=== PATIENT | male | born 1960 | race Caucasian/White ===

== ENCOUNTER → 2017-10-29 08:14 | Outpatient (CLI) | payer OTHER, SELFPAY ==
[2017-10-29 12:03] LABS: Absolute Lymphocyte Count 2.36 X10^3/ul (0.83-4.51); Absolute Neutrophil Count 3.2 X10^3/uL (2.0-7.7); Basophil# 0.03 X10^3/uL; Basophil% 0.5 % (0-1); Eosinophil# 0.19 X10^3/uL; Eosinophils% 2.9 % (0-5); Hematocrit 43.4 % (40-54); Hemoglobin 14.5 g/dl (13.0-16.5); Lymphocyte # 2.36 X10^3/ul (4.0); Lymphocyte % 36.2 % (19-41); Mean Corp Hgb Conc 33.4 g/gl (32-36); Mean Corpuscular Volume 92.9 fL (80-94); Monocyte# 0.74 X10^3/uL; Monocyte% 11.3 % (0-10); Neutrophil # 3.18 X10^3/uL (2.7-7.7); Neutrophil % 48.8 % (47-70); Platelet Count 352 K/mm3 (150-450); RBC Distribution Width CV 13.2 % (11.6-14.6); RBC Distribution Width SD 44.9 fl (35.1-43.9); Red Blood Count 4.67 M/mm3 (4.6-6.2); White Blood Count 6.5 K/mm3 (4.4-11.0)
[2017-10-29 12:04] LABS: POSITIVE COUNT NO; POSITIVE DIFFERENTIAL NO; POSITIVE MORPHOLOGY NO
[2017-10-29 12:28] LABS: AST(SGOT) 15 U/L (15-37); Alanine Aminotransfer ALT/SGPT 34 U/L (16-61); Alkaline Phosphatase 76 U/L (45-117); Anion Gap 7 (5-15); BUN 19 mg/dL (7-18); BUN/Creat Ratio 15.6 RATIO (10-20); Calcium,Total 8.7 mg/dL (8.5-10.1); Chloride 105 mmol/L (98-107); Cholesterol 240 mg/dL (200); Creatinine, Serum 1.22 mg/dL (0.70-1.30); EST Glomerular Filtration Rate 65 mL/min (>60); Est Glom Filt Rate - Afr Amer 78 mL/min (>60); Globulin 4.1 g/dL (2.2-4.2); Glucose 92 mg/dL (74-106); High Density Lipoprotein 42 mg/dL; PSA,Total - Annual Screen 0.62 ng/mL (0.00-4.00); Potassium 4.1 mmol/L (3.5-5.1); Protein, Total 8.1 g/dL (6.4-8.2); Sodium Level 139 mmol/L (136-145); Triglycerides 86 mg/dL; Very Low Density Lipoprotein 17 mg/dL (5-40)
== END ==
PROVIDERS: Family Provider Family Medicine; PCP Family Medicine; Visit Provider Family Medicine
DX: Z00.00 Encounter for general adult medical examination without abnormal findings (principal); R03.0 Elevated blood-pressure reading, without diagnosis of hypertension
CPT/HCPCS: 36415; 80053; 80061; 84153; 85025; G0103

== ENCOUNTER → 2020-02-18 10:54 | Outpatient (CLI) | payer OTHER, SELFPAY | PROVIDERS: PCP Family Medicine; Visit Provider Family Medicine | DX: N39.0 Urinary tract infection, site not specified (principal) | CPT/HCPCS: 87086 ==

== ENCOUNTER → 2020-06-21 11:04 | Outpatient (CLI) | payer OTHER, SELFPAY ==
[2020-06-21 15:32] LABS: Absolute Neutrophil Count 4.9 X10^3/uL (2.0-7.7); Basophil# 0.06 X10^3/uL; Basophil% 0.8 % (0-1); Eosinophil# 0.17 X10^3/uL; Eosinophils% 2.2 % (0-5); Hematocrit 44.6 % (40-54); Hemoglobin 14.8 g/dL (13.0-16.5); Mean Corp Hgb Conc 33.2 g/dL (32-36); Mean Corpuscular Hgb 30.5 pg (27.0-32.0); Mean Corpuscular Volume 91.8 fL (80-94); Mean Platelet Vol. 10.3 fl (6.2-12.0); Monocyte% 11.5 % (0-10); NRBC Flagged by Analyzer 0 % (0-5); Neutrophil # 4.86 X10^3/uL (2.7-7.7); Platelet Count 375 K/mm3 (150-450); RBC Distribution Width CV 12.6 % (11.6-14.6); RBC Distribution Width SD 42.1 fl (35.1-43.9); Red Blood Count 4.86 M/mm3 (4.6-6.2); White Blood Count 7.8 K/mm3 (4.4-11.0)
[2020-06-21 16:21] LABS: ALB/GLOB Ratio 0.8 RATIO (0.9-2.4); AST(SGOT) 16 U/L (15-37); Alanine Aminotransfer ALT/SGPT 43 U/L (16-61); Albumin, Serum 3.8 g/dL (3.2-5.0); Alkaline Phosphatase 125 U/L (45-117); Anion Gap 8 (5-15); BUN 18 mg/dL (7-18); BUN/Creat Ratio 16.7 RATIO (10-20); CRP < 2.90 mg/L (0.0-3.0); Calcium,Total 8.7 mg/dL (8.5-10.1); Chloride 102 mmol/L (98-107); Creatinine, Serum 1.08 mg/dL (0.70-1.30); EST Glomerular Filtration Rate 74 mL/min (>60); Est Glom Filt Rate - Afr Amer 89 mL/min (>60); Globulin 4.5 g/dL (2.2-4.2); Glucose 84 mg/dL (74-106); Potassium 3.8 mmol/L (3.5-5.1); Protein, Total 8.3 g/dL (6.4-8.2); Sodium Level 136 mmol/L (136-145); Thyroid Stim Hormone (TSH) 1.08 uIU/mL (0.358-3.74)
[2020-06-23 08:16] LABS: LDL, Direct 120295 195 mg/dL (0-99)
== END ==
PROVIDERS: PCP Family Medicine; Visit Provider Family Medicine
DX: R53.83 Other fatigue (principal); R03.0 Elevated blood-pressure reading, without diagnosis of hypertension; E78.5 Hyperlipidemia, unspecified
CPT/HCPCS: 36415; 80053; 83721; 84443; 85025; 86140

== ENCOUNTER 2021-02-07 06:10 | Day surgery (SDC) | payer OTHER, SELFPAY ==
[2021-02-07] VITALS (7 sets, daily range): BP systolic 88–151; BP diastolic 61–94; PULSE 65–95; RESP 16; TEMP 36.1–36.8; O2SAT 94–97; BMI 27.1
[2021-02-07] MEDS: Lactated Ringers 1,000 ML 100 ML IV (06:37)
--- NOTE | 2021-02-07 07:30 | COLBX_PTH ---
PATIENT: KALEB SHELBY LOC: EN U#:[id number] AGE/SX: 60/M ROOM: RE02/07/[address]: Dr. Rebecca Boothe MD : 1960 BED: DIS: 02/07/2021 SPEC #: [id number] RECD: 02/07/21 10:20 STATUS: CATHERINE REManasa #: [id number] AMY: 02/07/21 07:[address]: Rebecca Boothe DEPT: SURGICAL PATHOLOGY RECD BY: Julianna Chairez ENTERED: 02/07/21 10:55 SP TYPE: COLON BX OTHR DR: Dr. Faye Sheth MD Tissues: Transverse colon Procedures: Surgery Specimen Level IV HEADER OPERATION: Colonoscopy ? open access (MAC) PRE-OP DIAGNOSIS: Screening for colon cancer TISSUE SUBMITTED: Biopsy transverse polyp MICROSCOPIC DIAGNOSIS Transverse colon polyp, biopsy: Tubular adenoma. SJ:holly 02/08/2021 MICROSCOPIC DESCRIPTION Slides are reviewed. GROSS DESCRIPTION Received in fixative is one container labeled with the patient's name and designated biopsy transverse polyp. The specimen consists of one irregular fragment of light robbins soft tissue that measures 0.3 x 0.3 x 0.1 cm. The specimen is totally submitted in one cassette. / SJ:holly 02/07/21 TC:1 CPT: 85144
--- NOTE | 2021-02-07 07:38 | H&P.OPEN ---
HPI - General HPI Narrative KALEB SHELBY, is a 60 M who presents for screening colonoscopy. Patient's never had a previous colonoscopy. Patient's grandfather had colon cancer in his later 50s but none in his immediate family. Patient denies any chronic abdominal pain/nausea/vomiting. Patient does have reflux and is taking Prilosec for that for years never had EGD. [facility] Medical History (Updated 02/07/21 @ 07:[address] Rebecca Boothe MD) Anxiety Former smoker Gastric reflux High cholesterol History of COVID-19 History of hiatal hernia History of kidney stones Leg cramps Wears contact lenses Home Medications ascorbic acid (vitamin C) [Vitamin C] 1,000 mg PO DAILY 02/05/21 [History Last Taken 02/03/21 1000 mg] cholecalciferol (vitamin D3) [Vitamin D3] 125 mcg PO DAILY 02/05/21 [History Last Taken 02/03/21 125 mcg] cyanocobalamin (vitamin B-12) [Vitamin B-12] 500 mcg PO DAILY 02/05/21 [History Last Taken 02/03/21 500 mcg] escitalopram oxalate [Lexapro] 10 mg PO DAILY 02/05/21 [History Last Taken Unknown] magnesium 15 mg PO DAILY 02/05/21 [History Last Taken 02/03/21 15 mg] multivitamin 1 tab PO DAILY 02/05/21 [History Last Taken 02/03/21 1 TAB] omeprazole [Prilosec] 20 mg PO DAILY 02/05/21 [History Last Taken 02/06/21 21:00] Allergy/AdvReac Type Severity Reaction Status Date / Time No Known Allergies Allergy Verified 02/05/21 11:46 Surgical History (Updated 02/05/21 @ 11:52 by Amelia Bailey) History of laparoscopy History of lithotripsy Social History (System 02/10/19 @ 09:40 by Sheela Lin) Smoking Status: Former smoker Past Medical/Surgical History Planned Operation Planned Operative Procedure/s: Colonoscopy Previous Hospitalizations/Surgeries HX Hospitalizations: No Any Problems With Anesthesia: No You/Your Family Experience Fever (Hyperthermia) With Anes: No Cholinesterase deficiency: No Cardiovascular Hx of Irregular Heartbeat and/or Afib: No Hx Heart Attack: No Hx Congestive Heart Failure: No Hx Hypertension: No Hx Pacemaker: No Respiratory Hx Chronic Obstructive Pulmonary Disease (COPD): No Hx Asthma: No Hx Emphysema: No Hx Sleep Apnea: No Hx Respiratory Tract Infection/Cold (presently): No Do You Snore Loudly (louder than talking or can be heard): No Do You Often Feel Tired/ Fatigued/ Sleepy Dring Daytime?: No Has Anyone Observed You Stop Breathing During Sleep?: No Result (for STOP score): Negative Smoking Status: Former smoker Gastrointestinal Hx Gastroesophageal Reflux: Yes Controlled With Meds: Yes Hx Ulcer: No Special diet followed at home: No Neurological Hx Seizures: No Hx Head/Neck Injury: No Hx Headaches: No Hx Back Injury/Pain: No Does patient have nerve stimulator: Yes Miscellaneous Recent Exposure to Contagious Disease: No Allergies No Known Allergies Allergy (Verified 02/05/21 11:46) Discharge Is Pt Admitted From a Fpc, or a Skilled Nursing: No Who Could Help: family After D/C, Where Do you Plan to Go: Return Home Vital Signs Vital Signs Vital Signs: 02/07/21 06:37 Temperature 98.2 F Temperature Source Temporal Pulse Rate 95 Respiratory Rate 16 Respiratory Pattern Normal Blood Pressure 151/94 H Blood Pressure Mean 113 Blood Pressure Source Monitor Blood Pressure Position Semi-Fowlers Blood Pressure Location Right Arm Pulse Ox 97 Oxygen Delivery Method Room Air Weight Weight: 205 lb 4.006 oz Body Mass Index (BMI) 27.1 Physical Exam Const alert, oriented x3 and no apparent distress HEENT normocephalic and head/scalp atraumatic Resp normal respiratory effort Cardio regular rate GI soft to palpation and non-tender; Negative for non-distended Palpation: Negative for guarding Extremity no clubbing, cyanosis or edema Neuro CN's II-XII intact bilaterally Psych mental status grossly normal Assessment & Plan Assessment/Plan (1) Screening for colon cancer: Procedure Criteria Type of Procedure Procedure Type: Elective Elective Risks - COVID COVID Risk Discussion: The surgeon/proceduralist and patient have discussed in detail the risk of exposure to and/or potential harm posed by the COVID-19 virus with having a surgery/procedure at this time versus the risk of delaying the surgery/procedure. It is not possible to know either the risk of delaying the surgery or procedure or chance of getting an infection with perfect accuracy, but a joint decision was made between the patient and the surgeon/proceduralist to proceed at this time with the scheduled surgery/procedure as indicated on the consent form. Surgery Risks - Colonoscopy Risks Include but are not Limited To: Risks include but are not limited to: Bleeding, perforation requiring further surgery, inability to complete colonoscopy requiring barium enema.
--- NOTE | 2021-02-07 08:21 | OP.COLON_ITS ---
Patient Name: Chuy Sunshine Procedure Date: 02/07/2021 7:14 AM Date of : 1960 Age: 60 Procedure: Colonoscopy Indications: Screening for colorectal malignant neoplasm Providers: Rebecca Boothe MD Referring MD: Faye Sheth Medicines: Monitored Anesthesia Care Patient Profile: This is a 60 year old male. Last Colonoscopy: none. The patient's first colonoscopy is today. Complications: No immediate complications. Procedure: Pre-Anesthesia Assessment: - Prior to the procedure, a History and Physical was performed, and patient medications and allergies were reviewed. The patient's tolerance of previous anesthesia was also reviewed. The risks and benefits of the procedure and the sedation options and risks were discussed with the patient. All questions were answered, and informed consent was obtained. Prior Anticoagulants: The patient has taken no previous anticoagulant or antiplatelet agents. ASA Grade Assessment: Per anesthesia. After reviewing the risks and benefits, the patient was deemed in satisfactory condition to undergo the procedure. After I obtained informed consent, the scope was passed under direct vision. Throughout the procedure, the patient's blood pressure, pulse, and oxygen saturations were monitored continuously. The colonoscope was introduced through the anus and advanced to the cecum, identified by its appearance. The colonoscopy was performed without difficulty. The patient tolerated the procedure well. The quality of the bowel preparation was good. Scope In: 7:52:03 AM Scope Withdrawal Time 0 hours 11 minutes 51 seconds Scope Out: 8:15:14 AM Total Procedure Duration Time 0 hours 23 minutes 11 seconds Findings: The perianal and digital rectal examinations were normal. A less than 5 mm polyp was found in the transverse colon. The polyp was sessile. The polyp was removed with a cold biopsy forceps. Resection and retrieval were complete. The exam was otherwise without abnormality on direct and retroflexion views. Impression: - One less than 5 mm polyp in the transverse colon, removed with a cold biopsy forceps. Resected and retrieved. - The examination was otherwise normal on direct and retroflexion views. Recommendation: - Discharge patient to home. - Resume previous diet. - Continue present medications. - Await pathology results. - Repeat colonoscopy in 5 years for surveillance based on pathology results. Procedure Code(s): --- Professional --- 93726, PT, Colonoscopy, flexible; with biopsy, single or multiple Diagnosis Code(s): --- Professional --- Z12.11, Encounter for screening for malignant neoplasm of colon D12.3, Benign neoplasm of transverse colon (hepatic flexure or splenic flexure) CPT copyright 2017 [employer]. All rights reserved. The codes documented in this report are preliminary and upon chopper operator review may be revised to meet current compliance requirements. MD Rebecca Ovalle MD 02/07/2021 8:20:29 AM This report has been signed electronically. Number of Addenda: 0 Note Initiated On: 02/07/2021 7:14 AM
--- NOTE | 2021-02-07 08:21 | OP.CCLET_ITS ---
02/07/2021 Faye Sheth [place] [id number] [address] Re : Colonoscopy procedure for Chuy Sunshine Dear Dr. Sheth This procedure was performed on Sunday, February 07, 2021. My impressions and recommendations are as follows: Impressions : - One less than 5 mm polyp in the transverse colon, removed with a cold biopsy forceps. Resected and retrieved. - The examination was otherwise normal on direct and retroflexion views. Recommendations : - Discharge patient to home. - Resume previous diet. - Continue present medications. - Await pathology results. - Repeat colonoscopy in 5 years for surveillance based on pathology results. My findings are described in the full procedure note, which is enclosed. If I can be of further assistance, please feel free to contact me at Doctor phone number(s): , Work: . Sincerely, MD Rebecca Ovalle MD 02/07/2021 8:20:29 AM This report has been signed electronically.
== END 2021-02-07 09:08 ==
LOC: EN 06:12 → AC 06:13
PROVIDERS: PCP Family Medicine; Referring Provider Family Medicine; Visit Provider Surgery
PROC: 0DJD8ZZ Inspection of Lower Intestinal Tract, Via Natural or Artificial Opening Endoscopic (ICD-10-PCS; CPT 45378; principal; 2021-02-07 07:25)
DX: Z12.11 Encounter for screening for malignant neoplasm of colon (principal); D12.3 Benign neoplasm of transverse colon; Z80.0 Family history of malignant neoplasm of digestive organs; K21.9 Gastro-esophageal reflux disease without esophagitis; Z87.891 Personal history of nicotine dependence; E78.00 Pure hypercholesterolemia, unspecified; Z86.16 Personal history of COVID-19; Z87.442 Personal history of urinary calculi
CPT/HCPCS: 45380; 87426; 88305; C9803; J7120; J2405

== ENCOUNTER 2022-07-01 16:35 | Emergency (ER) | payer OTHER, SELFPAY ==
[2022-07-01 16:36] VITALS: BP 169/106; PULSE 93; RESP 16; TEMP 36.4; O2SAT 98; BMI 27.9
--- NOTE | 2022-07-01 16:41 | EKG12_ITS ---
Test Reason : cp Blood Pressure : / mmHG Vent. Rate : 084 BPM Atrial Rate : 084 BPM P-R Int : 166 ms QRS Dur : 092 ms QT Int : 382 ms P-R-T Axes : 063 050 073 degrees QTc Int : 451 ms Normal sinus rhythm Nonspecific ST abnormality Abnormal ECG Confirmed by CARLOS VARGAS, SIRI ([id number]), health editor SERENE FIERRO ([id number]) on 07/02/2022 9:47:23 AM Referred By: Confirmed By:SIRI GONZALEZ MD
[2022-07-01 17:07] LABS: Absolute Lymphocyte Count 2.04 X10^3/uL (0.83-4.51); Absolute Neutrophil Count 3.8 X10^3/uL (2.0-7.7); Basophil# 0.05 X10^3/uL; Basophil% 0.7 % (0-1); Eosinophil# 0.09 X10^3/uL; Eosinophils% 1.3 % (0-5); Hematocrit 44.7 % (40-54); Hemoglobin 15.6 g/dL (13.0-16.5); Lymphocyte # 2.04 X10^3/ul (0.83-4.51); Lymphocyte % 29.9 % (19-41); Mean Corp Hgb Conc 34.9 g/dL (32-36); Mean Corpuscular Hgb 31.8 pg (27.0-32.0); Mean Corpuscular Volume 91.2 fL (80-94); Mean Platelet Vol. 10.2 fl (6.2-12.0); Monocyte# 0.82 X10^3/uL; NRBC Flagged by Analyzer 0 % (0-5); Neutrophil # 3.82 X10^3/uL (2.7-7.7); Platelet Count 327 K/mm3 (150-450); RBC Distribution Width CV 12.6 % (11.6-14.6); RBC Distribution Width SD 41.8 fl (35.1-43.9); White Blood Count 6.8 K/mm3 (4.4-11.0)
[2022-07-01 17:20] VITALS: BP 175/113; PULSE 77; RESP 13; O2SAT 98
[2022-07-01 17:21] LABS: Anion Gap 6 (5-15); BUN 12 mg/dL (7-18); BUN/Creat Ratio 9.5 RATIO (10-20); Calcium,Total 9.3 mg/dL (8.5-10.1); Chloride 104 mmol/L (98-107); Creatinine, Serum 1.26 mg/dL (0.70-1.30); EST Glomerular Filtration Rate 61 mL/min (>60); Est Glom Filt Rate - Afr Amer 74 mL/min (>60); Estimated Creatinine Clearance 67.82 ml/min; Glucose 109 mg/dL (74-106); Potassium 3.6 mmol/L (3.5-5.1); Sodium Level 138 mmol/L (136-145); Troponin-I HS 4 pg/mL (3.0-78.0)
--- NOTE | 2022-07-01 17:25 | RAD_ITS ---
STUDY: X-RAY CHEST REASON FOR EXAM: Male, 62 years old. chest pain TECHNIQUE: XR Chest 1 View COMPARISON: None FINDINGS: There is atherosclerotic calcification of the aortic arch with tortuosity. There are diffuse degenerative changes of the visualized thoracic spine. There is degenerative osteoarthritis of the bilateral shoulders. There is no demonstrated pleural abnormality. Normal size heart. Normal mediastinum and danyell. Normal visualized pulmonary arteries. There is no demonstrated abnormality of the visualized soft tissue structures of the upper abdomen. RAD/Chest 1 View (Portable) IMPRESSION: There are no acute findings. Electronically Signed: Jimmy Atkins MD at 17:35 EST ,
--- NOTE | 2022-07-01 17:59 | EDS_ITS ---
HPI History of Present Illness Chief Complaint: Chest Pain Detail of Chief Complaint: Heart flip-flopping, abdominal bloating this and lightheadedness not chest Informant: patient and spouse/S.O. Onset/Context/Timing Onset: Weeks Context: Sudden Onset Timing: Intermittent Quality: Patient states that he flip-flopping sensation last seconds. Location: Lower chest upper abdomen Current Severity: Gone Maximum Severity: Moderate Worsened by: Nothing Relieved by: Transient Associated Symptoms Associated Symptoms: None Narrative Narrative: Patient is a 62-year-old male who presents with flip-flopping sensation in his chest upper abdomen with fullness. This been going on for some time. He had a Holter monitor placed a year ago with no abnormality detected. Patient denies chest pain, pressure, tightness or heaviness. Patient denies neck or jaw pain, shoulder pain or upper extremity pain. Patient denies nausea, vomiting, diaphoresis or shortness of breath. Patient states when he demetri from a sitting position he did feel lightheaded for short period of time. He denies black or maroon-colored stool. He denies leg pain, swelling discoloration. Nu[place] history of VTE. Denies risk factors for VTE. He denies history of hypertension. Patient states his blood pressure recently has been elevated. He denied headache, visual, ocular auditory symptoms with his elevated blood pressure. He denies problems with speech or swallowing. He denies problems with balance or coordination. He denies paresthesia, anesthesia or motor his upper or lower extremity. Prior similar symptoms: Yes (1 year ago) Recent Illness/Hospitalization: No [facility] Medical History Anxiety Former smoker Gastric reflux High cholesterol History of COVID-19 History of hiatal hernia History of kidney stones Leg cramps Wears contact lenses Home Medications ascorbic acid (vitamin C) 500 mg tablet (Vitamin C) 1,000 mg PO DAILY 02/05/21 [ History Last Taken 02/03/21 1000 mg] cholecalciferol (vitamin D3) 125 mcg (5,000 unit) tablet (Vitamin D3) 125 mcg PO DAILY 02/05/21 [History Last Taken 02/03/21 125 mcg] cyanocobalamin (vitamin B-12) 500 mcg tablet (Vitamin B-12) 500 mcg PO DAILY 02/05/21 [History Last Taken 02/03/21 500 mcg] escitalopram oxalate 10 mg tablet (Lexapro) 10 mg PO DAILY 02/05/21 [History Last Taken Unknown] magnesium 500 mg tablet 15 mg PO DAILY 02/05/21 [History Last Taken 02/03/21 15 mg] multivitamin 1 tab PO DAILY 02/05/21 [History Last Taken 02/03/21 1 TAB] omeprazole 20 mg capsule,delayed release 20 mg PO DAILY GERD 02/05/21 [History Last Taken 02/06/21 21:00] hydrochlorothiazide 12.5 mg tablet 12.5 mg PO DAILY #30 tabs 07/01/22 [Rx Last Taken Unknown] Allergy/AdvReac Type Severity Reaction Status Date / Time No Known Allergies Allergy Verified 02/05/21 11:46 Surgical History History of laparoscopy History of lithotripsy Social History (Updated 07/01/22 @ 18:[address] Rebel Cueto MD) household members: spouse Smoking Status: Former smoker alcohol intake: former substance use type: does not use ROS ROS ED Constitutional Constitutional ED: Denies chills, fever(s), subjective, sweats or weight loss Eyes Eyes: Denies blurry vision, change in vision or diplopia ENT ENT ED: Denies ear pain, rhinorrhea or sore throat Cardiovascular Cardiovascular: Reports palpitations; Denies chest pain, orthopnea, paroxysmal nocturnal dyspnea or racing heartbeat Respiratory/Chest Respiratory/Chest: Denies cough, dyspnea, dyspnea on exertion, orthopnea or paroxysmal nocturnal dyspnea Gastrointestinal Gastrointestinal: Reports abdominal pain, constipation and other Details: No change in the color, consistency or caliber of his stool. He states he does h ave problems with constipation. ; Denies diarrhea or melena Genitourinary Genitourinary ED: Denies dysuria, hematuria or urinary frequency Musculoskeletal Musculoskeletal: Denies arthralgias, back pain, myalgias or neck pain Neurologic Neurologic: Denies headache(s), paresthesias or weakness Psychiatric Psychiatric: Reports anxiety; Denies depression or suicidal ideation Hematologic/Lymphatic Hematologic/Lymphatic: Reports systems reviewed and no addt'l complaints, except as documented EXAM Physical Exam Const Vital Signs: 07/01/22 16:36 07/01/22 17:20 07/01/22 17:20 Temperature 97.5 F L Temperature Source Temporal Pulse Rate 93 77 Respiratory Rate 16 13 Blood Pressure 169/106 H 175/113 H Blood Pressure Mean 127 133 Pulse Ox 98 98 98 Oxygen Delivery Method Room Air Room Air Room Air Positive well nourished and well developed General Appearance ED: well developed and NAD; Negative for cyanotic, diaphoretic or pallor HEENT Reports moist mucous membranes HEENT Narrative: Head is atraumatic normocephalic. Ears normal. Nares patent. Uvula midline. No deviation of protrusion. No erythema or exudate the posterior pharynx. Eyes PERRL and EOMs intact bilaterally General Eye ED: Negative for pale conjunctiva or scleral icterus Neck no lymphadenopathy, supple and no JVD Chest Wall inspection of chest normal and palpation of chest normal Resp normal respiratory effort and clear to auscultation bilaterally Cardio regular rate, regular rhythm, S1 normal heart sound, S2 normal heart sound and no murmurs GI normal to inspection, nondistended, normoactive bowel sounds, non-tender, non- distended and no masses; Negative for hepatosplenomegaly Palpation: soft Back/Spine no CVA tenderness Extremity normal to inspection General Extremety ED: Negative for edema or tenderness General Extremity: Negative for edema Neuro oriented x3, CN's II-XII intact bilaterally and no sensory deficits noted Sensorium / Orientation: alert Motor Exam: strength 5/5 throughout Skin no rashes or lesions noted, no wounds and skin turgor normal General Skin Exam: elasticity normal; Negative for jaundice or pallor MDM MDM MDM Narrative Medical decision making narrative: Nurse initiated protocol was started. Patient presents with palpitation. Patient complained of palpitations while I was examined him and monitor reveals unifocal premature ventricular beats. My reveals a sinus rhythm. Rate is 77. Need to evaluate for caffeine ingestion, electrolyte abnormality and specifically hypokalemia, atypical presentation for cardiac ischemia. CBC was obtained to assess for anemia. Old records indicate he did have a Holter monitor placed approximately year ago. There was no abnormal ectopy or evidence of PSVT, VT or tacky dysrhythmia. Lab Data Attestation: I reviewed the patient's lab results. Labs: Laboratory Results - last 24 hr 07/01/22 07/01/22 16:51 16:51 WBC 6.8 RBC 4.90 Hgb 15.6 Hct 44.7 MCV 91.2 MCH 31.8 MCHC 34.9 RDW Std Deviation 41.8 RDW Coeff of Lakisha 12.6 Plt Count 327 MPV 10.2 Immature Gran % (Auto) 0.100 Neut % (Auto) 56.0 Lymph % (Auto) 29.9 Blanco % (Auto) 12.0 H Eos % (Auto) 1.3 Baso % (Auto) 0.7 Absolute Neuts (auto) 3.8 Absolute Lymphs (auto) 2.04 Nucleated RBC % 0 Sodium 138 Potassium 3.6 Chloride 104 Carbon Dioxide 28.0 Anion Gap 6 BUN 12 Creatinine 1.26 Estim Creat Clear Calc 67.82 Est GFR (MDRD) Af Amer 74 Est GFR (MDRD) Non-Af 61 BUN/Creatinine Ratio 9.5 L Glucose 109 H Calcium 9.3 Troponin I High Sens 4 Radiography Chest X-Ray - ED: 1 View and Read by ED Physician (Cardiac silhouette size normal. Lung parenchyma normal. No effusion. Perihilar region normal. [place] structures normal. This is independent reviewed interpreted by me.) Diagnostic Testing: Clinical Impression(s) from Imaging Studies Chest X-Ray 07/01/22 17:25 IMPRESSION: There are no acute findings. Electronically Signed: Jimmy Atkins MD at 17:35 EST Reading Location ID and State: [facility] / [place] , Service support , Rhythm Strip Rhythm Strip: Sinus Rhythm Rate: 77 Ectopy: PVC(s) (Occasional) EKG Initial EKG: Attestation: I personally reviewed and interpreted this EKG as follows: Interpretation: Sinus Rhythm (The EKG reveals a rate of 84. ME interval is 106 6 ms per cures duration 92 ms. QT duration 382 ms. [place] is normal. Computer is reading ossific changes. In my opinion patient has a normal EKG.) Prior: Unchanged Discharge Plan Triage Chief Complaint: Chest Pain ED Provider: Rebel Cueto Dx/Rx/DC Orders Clinical Impression: Unifocal premature ventricular beats, High blood pressure Instructions: PVCs, ED Hypertension New Begin Treatment Prescriptions: New hydrochlorothiazide 12.5 mg tablet 12.5 mg PO DAILY Qty: 30 0RF No Action multivitamin Tablet 1 tab PO DAILY magnesium 500 mg Tablet 15 mg PO DAILY cyanocobalamin (vitamin B-12) [Vitamin B-12] 500 mcg Tablet 500 mcg PO DAILY ascorbic acid (vitamin C) [Vitamin C] 500 mg Tablet 1,000 mg PO DAILY omeprazole [Prilosec] 20 mg Capsule,Delayed Release(Dr/Ec) 20 mg PO DAILY escitalopram oxalate [Lexapro] 10 mg Tablet 10 mg PO DAILY cholecalciferol (vitamin D3) [Vitamin D3] 125 mcg (5,000 unit) Tablet 125 mcg PO DAILY Primary Care Provider: Faye Sheth Referrals: Faye Sheth MD [Primary Care Provider] - 1-2 Weeks Activity Restrictions/Additional Instructions: Recommend to getting the hydrochlorothiazide in the morning because this will cause increased urination the first 1 to 2 weeks of therapy. Disposition Disposition: Home, Self Care
[2022-07-01 18:23] VITALS: BP 157/101; PULSE 76; RESP 17; O2SAT 99
== END 2022-07-01 18:28 | disposition home or self-care (01) ==
LOC: ED 18:12
PROVIDERS: Emergency Provider Emergency Medicine; PCP Family Medicine; Visit Provider Emergency Medicine
DX: I49.3 Ventricular premature depolarization (principal); R42 Dizziness and giddiness; R03.0 Elevated blood-pressure reading, without diagnosis of hypertension; R14.0 Abdominal distension (gaseous); Z87.891 Personal history of nicotine dependence; E78.00 Pure hypercholesterolemia, unspecified; Z86.16 Personal history of COVID-19
CPT/HCPCS: 71045; 80048; 84484; 85025; 93005; 99283; A4216